=== PATIENT | male | born 1960 | race African-American/Black ===

== ENCOUNTER 2016-09-08 10:22 | Emergency (ER) | payer OTHER ==
[~2016-09-08] VITALS: Ht 185.4 cm; Wt 116.1 kg
--- NOTE | 2016-09-08 10:50 | ED INFLUENZA/URI COMPLAINT ---
History of Present Illness General Chief Complaint: Upper Respiratory Sx/Fever Stated Complaint: " I HAVE A BAD COLD' Source: patient Exam Limitations: no limitations Vital Signs & Intake/Output Vital Signs & Intake/Output Vital Signs Date Time Temp Pulse Resp B/P Pulse O2 O2 Flow FiO2 Ox Delivery Rate 09/08 1232 97.2 92 18 166/104 96 Room Air 09/08 1100 97 Room Air Room Air 09/08 1028 97.0 109 20 179/100 96 Room Air Allergies Coded Allergies: No Known Allergies (09/08/16) Reconcile Medications Albuterol Sulfate (Ventolin Hfa) 90 MCG HFA.AER.AD 2 PUF INH Q4-6 PRN PRN SHORTNESS OF BREATH Azithromycin (Zithromax) 500 MG TABLET 1 TAB PO DAILY BRONCHITIS Benzonatate (Tessalon Perle) 100 MG CAPSULE 1 CAP PO TID PRN COUGH Lisinopril 5 MG TABLET 1 TAB PO DAILY HEART (Reported) Metformin HCl 1,000 MG TABLET 1 TAB PO BID DIABETES (Reported) Methylprednisolone. (Medrol) 4 MG TAB.DS.PK 1 DP PO AD INFLAMMATION 6 on day 1 then reduce by one tablet daily until gone Mometasone Furoate (Nasonex) 50 MCG SPRAY.PUMP 2 SPRAY NASB DAILY PRN CONGESTION Robitussin AC (Guaifenesin-Codeine Syrup) 200 MG-20 MG/10 ML LIQUID 10 ML PO TID PRN COUGH Triage Note: PT TO ED C/O URI S/S X 2 DAYS. HAS BEEN TAKING OTC MEDS WITH NO RELIEF. C/O PRODUCTIVE COUGH WITH YELLOW MUCOUS. AFEBRILE. Triage Nurses Notes Reviewed? yes Onset: Gradual Duration: constant Timing: recent history Severity: moderate Severity Numbers: 5 HPI: Patient is a 56-year-old male presents emergency room with a 3 day history of gradual onset of cough sore throat pleuritic chest discomfort and burning sensation while coughing only, generalized weakness fatigue and head congestion and chills. Patient tried [id number]-[id number] medications with no relief of symptoms. Denies any shortness breath hemoptysis arm pain jaw pain chest pain nausea vomiting. Positive sick contacts at work. (TRELL OSPINA,MARIANO) Past History Travel History Traveled to [place] past 21 day No Medical History Any Pertinent Medical History? see below for history Cardiovascular: hypertension Endocrine: diabetes Surgical History Surgical History: non-contributory Psychosocial History What is your primary language [place] Tobacco Use: Quit >30 days ago ETOH Use: denies use Illicit Drug Use: denies illicit drug use Family History Hx Contributory? No (MARIANO GREWAL) Review of Systems Review of Systems Constitutional: Reports: see HPI, chills. EENTM: Reports: see HPI, nasal congestion. Respiratory: Reports: see HPI, cough. Cardiovascular: Reports: no symptoms. GI: Reports: no symptoms. Genitourinary: Reports: no symptoms. Musculoskeletal: Reports: no symptoms. Skin: Reports: no symptoms. Neurological/Psychological: Reports: no symptoms. Hematologic/Endocrine: Reports: no symptoms. Immunologic/Allergic: Reports: no symptoms. All Other Systems: Reviewed and Negative (MARIANO GREWAL) Physical Exam Physical Exam General Appearance: no apparent distress, alert, comfortable Ears, Nose, Throat: normal ENT inspection, moist mucous membrane, hearing grossly normal, Tympanic normal, nasal congestion, nasal drainage Comments: Well-developed well-nourished person in no acute distress HEENT: Normal EENT exam, extraocular motion intact, no nystagmus. Pupils equally round and reactive to light and accommodation. Nose is atraumatic. External auditory canal and Tympanic membranes clear. Pharynx normal. No swelling or edema. Nontender sinus Neck: Supple, no lymphadenopathy, normal range of motion without pain or tenderness Back: Nontender, no CVA tenderness. Cardiovascular: Regular rate and rhythms no murmurs rubs or gallops, normal JVP Respiratory: Chest nontender. No respiratory distress.breath sounds clear to auscultation bilaterally Abdomen: Soft, nontender nondistended, no appreciable organomegaly. Normal bowel sounds. No ascites Extremity: No edema, no calf tenderness to palpation, normal and equal pulses. Neuro: Alert oriented x3, motor sensory normal, Skin: No appreciable rash on exposed skin, skin is warm and dry. Psych: Mood and affect is normal, memory and judgment is normal. Core Measures Severe Sepsis Present: No Septic Shock Present: No (MARIANO GREWAL) Progress Differential Diagnosis: influenza, meningitis, neutropenia, otitis, pneumonia, pharyngitis, sinusitis Plan of Care: Orders Procedure Date/time Status RAPID VIRAL INFLUENZA A 09/08 1050 Complete Patient currently is in no apparent distress. Patient does note to have nasal congestion and nonproductive coughing while in the emergency room. My suspicion of cardiovascular etiology is very low. No suspicion of meningitis. Patient had negative influenza and will be treated for concerns of bronchitis Upon discharge patient looks well nontoxic-appearing afebrile and has establishment with a primary care doctors point in next week which I strongly advised patient to follow-up. (MARIANO GREWAL) Initial ED EKG: none (MARIANO GREWAL) Departure Departure Disposition: HOME OR SELF CARE Condition: Stable Clinical Impression Primary Impression: Bronchitis Referrals: UNKNOWN (PCP/Family) Additional Instructions: As discussed begin the prescription of azithromycin for the full course. Begin the prescription of Robitussin with codeine and Tessalon Perles for cough. Begin the prescription Nasonex for congestion and Ventolin for shortness of breath and Medrol Dosepak for inflammation. Begin [id number]-aku-ltdobrc Mucinex and Sudafed for congestion. Prescriptions waiting at [place] [facility]. Follow up with established primary care doctor's appointment next week for recheck. If symptoms worsen return to emergency room. Begin vnke-eep-soibjze Motrin for pain and Tylenol for fevers. Begin drinking plain water for hydration. Departure Forms: Customer Survey General Discharge Information Prescriptions: Current Visit Scripts Benzonatate (Tessalon Perle) 1 CAP PO TID PRN COUGH #21 CAP Albuterol Sulfate (Ventolin Hfa) 2 PUF INH Q4-6 PRN PRN SHORTNESS OF BREATH #1 INHAL Methylprednisolone. (Medrol) 1 DP PO AD #1 DP 6 on day 1 then reduce by one tablet daily until gone Mometasone Furoate (Nasonex) 2 SPRAY NASB DAILY PRN CONGESTION #1 INHAL Robitussin AC (Guaifenesin-Codeine Syrup) 10 ML PO TID PRN COUGH #120 ML Azithromycin (Zithromax) 1 TAB PO DAILY #5 TAB (MARIANO GREWAL) PA/BLOCK BREAKER Co-Sign Statement Statement: ED Attending supervision documentation- [] I saw and evaluated the patient. I have also reviewed all the pertinent lab results and diagnostic results. I agree with the findings and the plan of care as documented in the PA's/BLOCK BREAKER's documentation. [X] I have reviewed the ED Record and agree with the PA's/BLOCK BREAKER's documentation. [] Additions or exceptions (if any) to the PAs/BLOCK BREAKER's note and plan are summarized below: [] (CHANCE SKINNER DO)
[2016-09-08] MEDS ORDERED: LISINOPRIL5 M1 PO (10:52)
[2016-09-08] MEDS ORDERED: METFORMIN HCL1000 M1 PO (10:53)
[2016-09-08] MEDS ORDERED: VENTOLIN HFA18 GM INH (12:27)
[2016-09-08] MEDS ORDERED: TESSALON PERLE100 M1 PO (12:27)
[2016-09-08] MEDS ORDERED: MEDROL4 M2 PO (12:27)
[2016-09-08] MEDS ORDERED: NASONEX17 GM NASB (12:27)
[2016-09-08] MEDS ORDERED: ZITHROMAX500 M2 PO (12:27)
[2016-09-08] MEDS ORDERED: GUAIFENESIN-COD10 ML PO (12:27)
== END 2016-09-08 12:38 ==
LOC: ERH 10:22
DX: J40 Bronchitis, not specified as acute or chronic (principal); Z87.891 Personal history of nicotine dependence
CPT/HCPCS: 87804; 87804-59